=== PATIENT | female | born 1960 | race Caucasian/White ===

== ENCOUNTER 2018-05-13 07:56 | Emergency (ER) ==
[2018-05-13 08:10] VITALS: BP 113/75; TEMP 98.2; BMI 29.2
--- NOTE | 2018-05-13 08:27 | ED.PDOC ---
General ED Provider: Dr. CAROLYN BARKLEY MD Chief Complaint: Foot Pain/Injury Stated Complaint: twisted Left ankle Time Seen by Physician: 08:25 Mode of Arrival: Walk-In Information Source: Patient Exam Limitations: No limitations Primary Care Provider: CAROLYN VENTURA Referred to ED by: Other Nursing and Triage Documentation Reviewed and Agree: Yes Reviewed sepsis parameters & appropriate labs ordered?: Yes System Inflammatory Response Syndrome: Not Applicable Sepsis Protocol: For patient's 13 years and over: Temp is 96.8 and below OR 101 and greater Pulse >90 BPM Resp >20/minute Acutely Altered Mental Status Are patient's symptoms suggestive of a new infection, such as: -Pneumonia -Skin, Soft Tissue -Endocarditis -UTI -Bone, Joint Infection -Implantable Device -Acute Abdominal Infection -Wound Infection -Meningitis -Blood Stream Catheter Infection -Unknown Musculoskeletal Complaint Exam - Ankle/Foot Complaint/Exam Location of Injury: Reports: Left, Foot Mechanism of Injury: Reports: Trauma Symptoms Are: Reports: Still present Onset of Pain: Reports: Minutes Initial Severity: Mild Current Severity: Moderate Location: Reports: Diffuse Character: Reports: Aching Alleviating: Reports: None Aggravating: Reports: Movement, Weight bearing Able to Bear Weight: No Associated Signs and Symptoms: Reports: Bruising Gout Risk Factors: Reports: None Related Surgical History: Reports: None Achilles Tendon Abnormality: No Differential Diagnosis: Contusion, Sprain Review of Systems - Review Of Systems Constitutional: Reports: Other Eyes: Reports: No symptoms Ears, Nose, Mouth, Throat: Reports: No symptoms Respiratory: Reports: No symptoms Cardiac: Reports: No symptoms GI: Reports: No symptoms : Reports: No symptoms Musculoskeletal: Reports: Joint pain Skin: Reports: No symptoms Neurological: Reports: No symptoms Endocrine: Reports: No symptoms Hematologic/Lymphatic: Reports: No symptoms All Other Systems: Reviewed and Negative (pain on 5th MT) Past Medical History - Past Medical History Previously Healthy: Yes Endocrine: Reports: None Cardiovascular: Reports: None Respiratory: Reports: None Hematological: Reports: None Gastrointestinal: Reports: None Genitourinary: Reports: None Neuro/Psych: Reports: None Musculoskeletal: Reports: None Cancer: Reports: None Last Menstrual Period: hysterectomy - Surgical History General Surgical History: Reports: None - Family History Family History: Reports: None - Social History Smoking Status: Never smoker Hx Substance Use: No Alcohol Screening: Occasionally Physical Exam - Physical Exam Appearance: Well-appearing, No pain distress, Well-nourished Ill-appearing: None Pain Distress: Moderate Eyes: COCO, EOMI, Conjunctiva clear ENT: Ears normal, Nose normal, Oropharynx normal Respiratory: Airway patent, Breath sounds clear, Breath sounds equal, Respirations nonlabored Cardiovascular: RRR, Pulses normal, No rub, No murmur GI/: Soft, Nontender, No masses, Bowel sounds normal, No Organomegaly Musculoskeletal: Limited ROM, Limited strength Skin: Warm, Dry, Normal color Neurological: Sensation intact, Motor intact, Reflexes intact, Cranial nerves intact, Alert, Oriented Psychiatric: Affect appropriate, Mood appropriate Interpretation - Radiology Interpretation Radiology Results: Positive Critical Care Note - Critical Care Note Total Time (mins): 0 Course - Course Orders, Labs, Meds: Orders Category Date Time Status ANKLE, LEFT MIN 3 VIEWS Stat RADS 05/13/18 08:25 Completed FOOT, LEFT 3 VIEWS Stat RADS 05/13/18 08:30 Completed Vital Signs: Temp Pulse Resp BP Pulse Ox 05/13/18 07:58 98.2 F 85 20 113/75 98 Departure - Departure Time of Disposition: 09:00 Disposition: HOME SELF-CARE Discharge Problem: Fracture of foot bone, left, closed Condition: Good Pt referred to PMD for follow-up: Yes IPMP verified?: No Allergies/Adverse Reactions: Allergies Sulfa (Sulfonamide Antibiotics) Adverse Reaction (Verified 05/13/18 08:06) Home Medications: Ambulatory Orders Losartan/Hydrochlorothiazide [Losartan-Hctz 50-12.5 mg Tab] 1 each PO DAILY Disposition Discussed With: Patient (F/U oRTHO)
--- NOTE | 2018-05-13 08:50 | DI ---
EXAM: Radiographs, left ankle HISTORY: Initial presentation for left ankle injury. COMPARISON: None available. TECHNIQUE: Three views. FINDINGS: Bone mineralization is normal. There is no fracture or dislocation of the ankle. There i s no bleed, nondisplaced fracture of the distal fifth metatarsal shaft which is incompletely imaged. The joint spaces are maintained. No focal soft tissue abnormality is seen. IMPRESSION: Fifth metatarsal shaft fracture which is incompletely imaged.
--- NOTE | 2018-05-13 08:56 | DI ---
EXAM: Left foot three views HISTORY: Twisted and fell COMPARISON: None FINDINGS: There is a nondisplaced obliquely oriented fracture of the distal fifth metatarsal shaft. Minimal calcification near the base of the fifth metatarsal, likely degenerative. No focal soft tissu e abnormality. IMPERSSION: Fracture of the fifth metatarsal shaft.
== END 2018-05-13 09:28 | disposition home or self-care (01) ==
LOC: ED 07:56
DX: S92.355A Nondisplaced fracture of fifth metatarsal bone, left foot, initial encounter for closed fracture (principal); W19.XXXA Unspecified fall, initial encounter
CPT/HCPCS: 99283